=== PATIENT | female | born 1995 | race Caucasian/White ===

== ENCOUNTER 2016-10-29 22:09 | Emergency (ER) | payer SELFPAY ==
[2016-10-29 22:19] VITALS: BP 120/68
--- NOTE | 2016-10-29 22:59 | ER Document Report ---
ED General - General Chief Complaint: Dog Bite Stated Complaint: DOG BITE/HAND INJURY Notes: Patient is a 21-year-old female presents with complaint of dog bite to the left hand. Patient says it was her roommate's dog. Dog is up-to-date on all vaccinations and shots. Patient said dog bite occurred yesterday. Tonight she knows of the redness around the bite site. No fevers. No vomiting. No other complaints or injuries. TRAVEL OUTSIDE OF THE [place] IN LAST 30 DAYS: No - Related Data Allergies/Adverse Reactions: No Known Allergies Allergy (Unverified 01/15/16 00:31) Past Medical History - Social History Smoking Status: Current Every Day Smoker Frequency of alcohol use: Social Drug Abuse: None Family History: Reviewed & Not Pertinent Patient has suicidal ideation: No Patient has homicidal ideation: No Renal/ Medical History: Denies: Hx Peritoneal Dialysis Review of Systems - Review of Systems Notes: My Normal Review Basic REVIEW OF SYSTEMS: CONSTITUTIONAL : Denies fever, chills, or sweats. Denies recent illness. MUSCULOSKELETAL: Dogbite left hand SKIN: Denies rash or skin lesions. NEUROLOGICAL: Denies altered mental status or loss of consciousness. Denies headache. Denies weakness or paralysis or loss of use of either side. Denies problems with gait or speech. Denies sensory or motor loss. ALL OTHER SYSTEMS REVIEWED AND NEGATIVE. Physical Exam - Vital signs Vitals: Temp Pulse Resp BP Pulse Ox 98.0 F 109 H 18 120/68 99 10/29/16 22:15 10/29/16 22:15 10/29/16 22:15 10/29/16 22:15 10/29/16 22:15 - Notes Notes: General Appearance: Well nourished, alert, cooperative, no acute distress, no obvious discomfort. Well-appearing. Vitals: reviewed, See vital signs table. Extremities: strength 5/5 in all extremities, good pulses in all extremities, 2 puncture wounds. One on the dorsal aspect of the hyperthenar eminence. The other one is at the very base of the thumb. She has a superficial abrasion at the top of the thumb as well. Patient is able to flex and extend the fingers without any difficulty. No active bleeding. Patient is a small amount of surrounding erythema to both bites. Erythema is only at the base of the digit. , no edema. Skin: warm, dry, appropriate color, no rash Neuro: speech clear, oriented x 3, normal affect, responds appropriately to questions. Course - Vital Signs Vital signs: Temp Pulse Resp BP Pulse Ox 98.0 F 109 H 18 120/68 99 10/29/16 22:15 10/29/16 22:15 10/29/16 22:15 10/29/16 22:15 10/29/16 22:15 - Transfer of Care Notes: 10/29/16 23:30 Patient has no signs or symptoms of flexor tenosynovitis. She's able fully flex and extend her thumb without difficulty. She does not have a sausage digit. His only mild erythema at the base of the thumb. I will place her on Augmentin. I did irrigate the wounds with saline. I did clean the ChloraPrep. I Did Pl., Xeroform gauze over the 2 main puncture wounds and rewrap the hand. I encourage her to change the dressing daily. I did go over the signs of flexor tenosynovitis with the patient and strongly encouraged to return to ER if there's any signs of these. I did recommend a x-ray of the hand to rule out any foreign bodies. I cannot see or feel any foreign bodies on exam. I informed her there could still be a small piece of dog toothache could still be in the hand that I cannot see on physical exam. Patient understands this but still refuses x-ray. I did inform her that if there is a foreign body is left and there that infection would get worse. Patient again understands this and still refuses x-ray. Patient will be discharged. She's encouraged follow-up with the ER or another physician 2 days for close reevaluation. Dictation of this chart was performed using voice recognition software; therefore, there may be some unintended grammatical errors. Discharge - Discharge Clinical Impression: Dog bite Qualifiers: Encounter type: initial encounter Qualified Code(s): W54.0XXA - Bitten by dog, initial encounter Condition: Good Disposition: HOME, SELF-CARE Additional Instructions: Animal Bites Animal bites are often heavily contaminated with bacteria. In spite of thorough cleansing and proper treatment, these wounds frequently become infected. Bite wounds of the hands are especially prone to complications. Bites are dressed, if possible. Large wounds may require suturing after internal cleansing. Because of infection risk, some large wounds must remain unstitched. Your doctor is trained to advise you on the best treatment for your bite. Call the doctor at once if the wound becomes red, swollen, warm, increasingly painful, or if it begins to drain. Danger signs also include red streaks up the involved extremity, swollen glands in the groin or under the arm , or fever and chills. Please take antibiotics as prescribed. Please return to ER immediately if there is any spreading redness, swelling, if you have fevers, or if you have concerns that the infection is worsening. Please follow-up with us or another physician in 2 days for reevaluation. Prescriptions: Amox Tr/Potassium Clavulanate [Augmentin 875-125 Tablet] 1 tab PO BID 10 Days Forms: Return to Work
[2016-10-29] MEDS ORDERED: AMOXICILLIN TR/POT CLAVULANATE 500-125 MG TAB PO ONE (23:28)
== END 2016-10-29 23:36 | disposition home or self-care (01) ==
LOC: ER 22:09
DX: S61.452A Open bite of left hand, initial encounter (principal); S61.052A Open bite of left thumb without damage to nail, initial encounter; W54.0XXA Bitten by dog, initial encounter; F17.200 Nicotine dependence, unspecified, uncomplicated
CPT/HCPCS: 99283

== ENCOUNTER 2017-05-04 23:32 | Emergency (ER) | payer SELFPAY ==
[2017-05-05 00:05] VITALS: BP 133/84
[2017-05-05] MEDS ORDERED: PROCHLORPERAZINE EDISYLATE INJ 10 MG/2 ML VIAL IV ONE (00:36)
[2017-05-05] MEDS ORDERED: KETOROLAC TROMETHAMINE INJ/PF 30 MG/1 ML SDV IV ONE (00:36)
[2017-05-05] MEDS ORDERED: DIPHENHYDRAMINE HCL 50 MG/ML VIAL IV ONE (00:36)
--- NOTE | 2017-05-05 00:43 | ER Document Report ---
ED General - General Chief Complaint: Headache Stated Complaint: HEADACHE Time Seen by Provider: 05/05/17 00:36 Notes: Patient is a 21-year-old female with past medical history of recurrent migraine headaches who states that she had to leave work today due to a gradual onset of a bitemporal, throbbing, constant headache with associated photophobia, phonophobia and nausea and vomiting. Says she has had similar symptoms in the past. States she did take Excedrin Migraine headache medication prior to arrival and this is now completely resolved her pain. At time of my assessment she denies any symptoms whatsoever and is requesting to go home. She denies any use of estrogen. No history of dural venous sinus thromboses or prior aneurysmal bleed. Denies any head trauma. She has not seen her primary care doctor regarding today's episode. TRAVEL OUTSIDE OF THE [place] IN LAST 30 DAYS: No - Related Data Allergies/Adverse Reactions: No Known Allergies Allergy (Unverified 01/15/16 00:31) Past Medical History - General Information source: Patient - Social History Smoking Status: Never Smoker Frequency of alcohol use: None Drug Abuse: None Family History: Reviewed & Not Pertinent Renal/ Medical History: Denies: Hx Peritoneal Dialysis Review of Systems - Review of Systems Notes: Constitutional: Negative for fever. HENT: Negative for sore throat. Eyes: Negative for visual changes. Cardiovascular: Negative for chest pain. Respiratory: Negative for shortness of breath. Gastrointestinal: Negative for abdominal pain, vomiting or diarrhea. Genitourinary: Negative for dysuria. Musculoskeletal: Negative for back pain. Skin: Negative for rash. Neurological: Positive for headaches, negative for weakness or numbness. 10 point ROS negative except as marked above and in HPI. Physical Exam - Vital signs Vitals: Temp Pulse Resp BP Pulse Ox 98.6 F 68 16 133/84 H 99 05/05/17 00:03 05/05/17 00:03 05/05/17 00:03 05/05/17 00:03 05/05/17 00:03 Interpretation: Normal Notes: PHYSICAL EXAMINATION: GENERAL: Well-appearing, well-nourished and in no acute distress. HEAD: Atraumatic, normocephalic. EYES: Pupils equal round and reactive to light, extraocular movements intact, sclera anicteric, conjunctiva are normal. ENT: nares patent, oropharynx clear without exudates. Moist mucous membranes. NECK: Normal range of motion, supple without lymphadenopathy LUNGS: Breath sounds clear to auscultation bilaterally and equal. No wheezes rales or rhonchi. HEART: Regular rate and rhythm without murmurs ABDOMEN: Soft, nontender, normoactive bowel sounds. No guarding, no rebound. No masses appreciated. EXTREMITIES: Normal range of motion, no pitting or edema. No cyanosis. NEUROLOGICAL: Face symmetric. Tongue protrudes midline. Extraocular motions intact. Pupils are 2 mm and equally reactive. Normal speech, normal gait. 5 out of 5 strength in both the distal and proximal upper and lower extremities bilaterally. Sensation is grossly intact throughout. Finger to nose testing normal. Pronator drift normal. PSYCH: Normal mood, normal affect. SKIN: Warm, Dry, normal turgor, no rashes or lesions noted. Course - Re-evaluation Re-evalutation: 05/05/17 00:42 Presentation of a headache that appears to be most consistent with tension versus migrainous type headache. Headache was not maximal in onset, patient has no focal neurologic deficits, no nuchal rigidity, vital signs within normal limits, no papilledema, and patient is overall well in appearance. Based on clinical history and examination I do not suspect an acute subarachnoid hemorrhage, dural venous sinus thrombosis, acute meningitis, or intercranial mass. Given my low clinical suspicion for any acute life-threatening etiology, I do not feel advanced neuro imaging or laboratory testing is indicated at this time. Patient is actually stating at the time of my evaluation that her headache is now completely resolved that she took Excedrin Migraine headache prior to coming to the emergency department. At this time will discharge with return precautions and follow-up recommendations. Verbal discharge instructions given a the bedside and opportunity for questions given. Medication warnings reviewed. Patient is in agreement with this plan and has verbalized understanding of return precautions and the need for primary care follow-up in the next 24-72 hours. - Vital Signs Vital signs: Temp Pulse Resp BP Pulse Ox 98.6 F 88 20 133/84 H 98 05/05/17 00:03 05/05/17 02:18 05/05/17 02:18 05/05/17 00:03 05/05/17 02:18 Discharge - Discharge Clinical Impression: Migraine headache Qualifiers: Migraine type: unspecified Status migrainosus presence: without status migrainosus Intractability: not intractable Qualified Code(s): G43.909 - Migraine, unspecified, not intractable, without status migrainosus Condition: Good Disposition: HOME, SELF-CARE Additional Instructions: You were seen today for a migraine headache. Please follow-up with your primary care doctor regarding today's ED visit. Return to emergency department immediately if you develop a headache that gets to its maximum severity within 20 minutes of onset, you pass out, you develop weakness, numbness, changes in your vision, become unable to keep any fluids down for more than 12 hours, or develop a fever greater than 100.4 degrees Fahrenheit. If you develop a similar migraine headache in the future I recommend that you immediately take 600 mg of ibuprofen and 50 mg of Benadryl and go to sleep as quickly as possible. This can often prevent your migraine headache from becoming severe. Forms: Return to Work
== END 2017-05-05 02:18 | disposition home or self-care (01) ==
LOC: ER 23:32
DX: G43.909 Migraine, unspecified, not intractable, without status migrainosus (principal); H53.149 Visual discomfort, unspecified; R11.2 Nausea with vomiting, unspecified
CPT/HCPCS: 99283

== ENCOUNTER 2017-12-07 10:57 | Emergency (ER) | payer SELFPAY ==
--- NOTE | 2017-12-07 12:25 | ER Document Report ---
ED Medical Screen (RME) - General Chief Complaint: Pelvic Pain Stated Complaint: ABDOMINAL PAIN Time Seen by Provider: 12/07/17 12:24 Mode of Arrival: Ambulatory Information source: Patient Notes: This is a 22-year-old female with a history of ovarian cysts, 0, last normal menstrual period at the end of September, sexually active who presents to the emergency room with lower abdominal pain, some vaginal bleeding. She denies vaginal discharge. She has had some nausea and vomiting but is not nauseated at this time. TRAVEL OUTSIDE OF THE [place] IN LAST 30 DAYS: No - Related Data Allergies/Adverse Reactions: No Known Allergies Allergy (Verified 12/07/17 11:00) Past Medical History - General Last Menstrual Period: 10/29/17 - Social History Chew tobacco use (# tins/day): No Frequency of alcohol use: Occasional Drug Abuse: None Renal/ Medical History: Denies: Hx Peritoneal Dialysis Physical Exam - Vital signs Vitals: Temp Pulse Resp BP Pulse Ox 97.9 F 103 H 18 141/92 H 99 12/07/17 11:04 12/07/17 11:04 12/07/17 11:04 12/07/17 11:04 12/07/17 11:04 Course - Vital Signs Vital signs: Temp Pulse Resp BP Pulse Ox 97.9 F 103 H 18 141/92 H 99 12/07/17 11:04 12/07/17 11:04 12/07/17 11:04 12/07/17 11:04 12/07/17 11:04
[2017-12-07 13:10] LABS: ABSOLUTE EOSINOPHILS # (AUTO) 0.1 10^3/uL (0.0-0.6); ABSOLUTE LYMPHOCYTES (AUTO) 1.4 10^3/uL (0.5-4.7); ABSOLUTE MONOCYTES (AUTO) 0.6 10^3/uL (0.1-1.4); ABSOLUTE NEUT (AUTO) 3.5 10^3/uL (1.7-8.2); BASOPHILS % (AUTO) 0.7 % (0-2); EOSINOPHILS % (AUTO) 1.9 % (0-6); HEMOGLOBIN 13.5 g/dL (12.0-15.5); LYMPHOCYTES % (AUTO) 25.1 % (13-45); MEAN CORPUSCULAR HGB CONC 33.8 g/dL (32.0-36.0); MEAN CORPUSCULAR VOLUME 89 fl (80-97); MONOCYTES % (AUTO) 11.3 % (3-13); PLATELET COUNT 269 10^3/uL (150-450); RED BLOOD COUNT 4.51 10^6/uL (3.72-5.28); RED CELL DISTRIBUTION WIDTH 14.1 % (11.5-14.0); TOTAL CELLS COUNTED % (AUTO) 100 %; WHITE BLOOD COUNT 5.8 10^3/uL (4.0-10.5)
[2017-12-07 13:16] LABS: APPEARANCE,URINE CLEAR; BILIRUBIN,URINE NEGATIVE (NEGATIVE); COLOR,URINE STRAW; GLUCOSE, URINE NEGATIVE (NEGATIVE); KETONES,URINE NEGATIVE (NEGATIVE); LEUKOCYTE ESTERASE,URINE NEGATIVE (NEGATIVE); NITRITE,URINE NEGATIVE (NEGATIVE); PROTEIN,URINE NEGATIVE (NEGATIVE); URINE SPECIFIC GRAVITY 1.009; UROBILINOGEN,URINE NEGATIVE mg/dL (<2.0)
[2017-12-07 13:28] LABS: ALANINE AMINOTRANSFERASE 29 U/L (9-52); ALBUMIN 4.4 g/dL (3.5-5.0); ALKALINE PHOSPHATASE 40 U/L (38-126); ANION GAP 10 (5-19); ASPARTATE AMINO TRANSFERASE 22 U/L (14-36); BILIRUBIN,DIRECT 0.1 mg/dL (0.0-0.4); BILIRUBIN,TOTAL 0.3 mg/dL (0.2-1.3); BLOOD UREA NITROGEN 13 mg/dL (7-20); CALCIUM 9.6 mg/dL (8.4-10.2); CARBON DIOXIDE 27 mmol/L (22-30); CHLORIDE 105 mmol/L (98-107); GLUCOSE 82 mg/dL (75-110); POTASSIUM 4.1 mmol/L (3.6-5.0); SODIUM 141.8 mmol/L (137-145)
--- NOTE | 2017-12-07 14:44 | ER Document Report ---
ED GI/ - General Mode of Arrival: Ambulatory Information source: Patient TRAVEL OUTSIDE OF THE [place] IN LAST 30 DAYS: No <FRIDA HERMAN - Last Filed: 12/07/17 19:58> <ALBERT DARLING - Last Filed: 12/07/17 22:59> - General Chief Complaint: Pelvic Pain Stated Complaint: ABDOMINAL PAIN Time Seen by Provider: 12/07/17 12:24 Notes: Patient is a 22-year-old female with a history of ovarian cysts and endometriosis who presents to the emergency department today with complaints of a 3 day history of lower abdominal pain with associated nausea. Patient states when her pain began she developed vaginal bleeding which is "late for her period ". Patient states she had vomiting initially but this has since subsided and she just has nausea now. Patient states "she cannot work and her pain is coming interpersonal life". Patient states that she has tried Motrin with minimal relief. Patient mentions that she had "tooth tingling" in her symptoms first began. Patient complains of slight headache now but denies fevers, diarrhea, cough, and shortness of breath. (FRIDA HERMAN) - Related Data Allergies/Adverse Reactions: No Known Allergies Allergy (Verified 12/07/17 11:00) Past Medical History - General Information source: Patient Last Menstrual Period: 10/29/17 - Social History Smoking Status: Current Every Day Smoker Chew tobacco use (# tins/day): No Frequency of alcohol use: Occasional Drug Abuse: None Lives with: Family Family History: Reviewed & Not Pertinent Patient has suicidal ideation: No Patient has homicidal ideation: No Renal/ Medical History: Reports: Hx Ovarian Cysts, Other - Endometriosis Surgical Hx: Negative <FRIDA HERMAN - Last Filed: 12/07/17 19:58> Review of Systems - Review of Systems Constitutional: denies: Fever EENT: No symptoms reported Cardiovascular: No symptoms reported Respiratory: denies: Cough, Short of breath Gastrointestinal: See HPI, Abdominal pain, Nausea, Vomiting. denies: Diarrhea Genitourinary: No symptoms reported Female Genitourinary: No symptoms reported Musculoskeletal: No symptoms reported Skin: No symptoms reported Hematologic/Lymphatic: No symptoms reported Neurological/Psychological: See HPI, Headaches -: Yes All other systems reviewed and negative <FRIDA HERMAN - Last Filed: 12/07/17 19:58> Physical Exam <FRIDA HERMAN - Last Filed: 12/07/17 19:58> <ALBERT DARLING - Last Filed: 12/07/17 22:59> - Vital signs Vitals: Temp Pulse Resp BP Pulse Ox 97.9 F 103 H 18 141/92 H 99 12/07/17 11:04 12/07/17 11:04 12/07/17 11:04 12/07/17 11:04 12/07/17 11:04 - Notes Notes: PHYSICAL EXAM GENERAL: Alert, interacts well. No acute distress. HEAD: Normocephalic, atraumatic. EYES: Pupils equal, round, and reactive to light. Extraocular movements intact. ENT: Oral mucosa moist, tongue midline. NECK: Full range of motion. Supple. Trachea midline. LUNGS: Clear to auscultation bilaterally, no wheezes, rales, or rhonchi. No respiratory distress. HEART: Regular rate and rhythm. No murmurs, gallops, or rubs. ABDOMEN: Soft, mild lower abdominal tenderness with palpation. Non-distended. Bowel sounds present in all 4 quadrants. No guarding, rigidity, or rebound. EXTREMITIES: Moves all 4 extremities spontaneously. No edema. No cyanosis. NEUROLOGICAL: Alert and oriented x3. Normal speech. PSYCH: Normal affect, normal mood. SKIN: Warm, dry, normal turgor. No rashes or lesions noted. (FRIDA HERMAN) Course - Laboratory Result Diagrams: 12/07/17 12:42 12/07/17 12:42 <FRIDA HERMAN - Last Filed: 12/07/17 19:58> - Laboratory Result Diagrams: 12/07/17 12:42 12/07/17 12:42 <ALBERT DARLING - Last Filed: 12/07/17 22:59> - Re-evaluation Re-evalutation: 12/07/17 14:45 CBC unremarkable, no left shift, no leukocytosis, CMP unremarkable, quantitative beta-hCG undetectable, urinalysis negative without blood or infection. Patient's abdomen relatively benign, very mild right lower quadrant tenderness to palpation, no rebound, no evidence of appendicitis or ovarian torsion. Discussed with patient that we could perform an US to look for ovarian cysts or torsion, but I have low suspicion for torsion considering the pain has been ongoing for approximately 72 hours and there is still no leukocytosis. Patient declines an ultrasound at this point as she also feels ovarian torsion is unlikely. Patient's latest concern was that she possibly had an ectopic . As her quantitative hCG is completely undetectable this is not possible. Patient was offered a shot of Toradol which she declined, patient offered Robaxin in case any of this is uterine cramping causing her pain during her menstrual cycle. Patient will be written a prescription for this. Patient is recommended to follow-up with [facility] as an outpatient for possible hormonal control pills to help decrease her pain during her menstrual cycles given her history of ovarian torsion and endometriosis. (ALBERT DARLING) - Vital Signs Vital signs: Temp Pulse Resp BP Pulse Ox 98.0 F 98 18 138/90 H 100 12/07/17 14:56 12/07/17 14:56 12/07/17 14:56 12/07/17 14:56 12/07/17 14:56 - Laboratory Laboratory results interpreted by me: 12/07/17 12:42 RDW 14.1 H Discharge <FRIDA HERMAN - Last Filed: 12/07/17 19:58> <ALBERT DARLING - Last Filed: 12/07/17 22:59> - Discharge Clinical Impression: Vaginal bleeding, Bilateral lower abdominal pain, Elevated blood pressure reading Condition: Stable Disposition: HOME, SELF-CARE Additional Instructions: I do not know exactly what is causing her pain at this time. Today your test was negative so it is not an ectopic . There was no blood or infection in your urine. We discussed possibly doing a transvaginal ultrasound to look for ovarian torsion and jointly decided that ovarian torsion is unlikely given that you have a normal white blood cell count and your pain has been continuous for almost 72 hours. We also discussed that appendicitis is unlikely given your normal white blood cell count in your very mild abdominal exam. Should your abdominal pain worsen, should her vomiting return or should you develop any fevers please return to the emergency department. Please consider discussing with your [facility] the possibility of using some form of hormones to control your pain from your endometriosis and your ovarian cyst. Prescriptions: Methocarbamol [Robaxin 750 mg Tablet] 750 mg PO ASDIR PRN #40 tablet PRN Reason: Forms: Elevated Blood Pressure, Return to Work Referrals: KANDICE MELENDEZ MD [ACTIVE STAFF] - Follow up in 1 week Scribe Attestation: 12/07/17 22:59 I personally performed the services described in the documentation, reviewed and edited the documentation which was dictated to the scribe in my presence, and it accurately records my words and actions. (ALBERT DARLING) Scribe Documentation - Scribe Written by Alba:: Alba Phillips, 12/07/2017 1858 acting as scribe for :: Amaya <FRIDA HERMAN - Last Filed: 12/07/17 19:58>
[2017-12-07 14:57] VITALS: BP 138/90
== END 2017-12-07 14:57 | disposition home or self-care (01) ==
LOC: ER 10:57
DX: N93.9 Abnormal uterine and vaginal bleeding, unspecified (principal); R10.30 Lower abdominal pain, unspecified; R03.0 Elevated blood-pressure reading, without diagnosis of hypertension; R10.2 Pelvic and perineal pain; R51 Headache; F17.200 Nicotine dependence, unspecified, uncomplicated
CPT/HCPCS: 36415; 80053; 81001; 84702; 85025; 99284